=== PATIENT | female | born 2000 | race Caucasian/White ===

== ENCOUNTER 2018-04-08 11:37 | Emergency (ER) | payer OTHER ==
[~2018-04-08] VITALS: Ht 154.9 cm; Wt 55.5 kg
[2018-04-08] MEDS ORDERED: CYCLOBENZAPRINE HCL 10 MG TABLET PO ONE (12:30)
[2018-04-08] MEDS ORDERED: LIDOCAINE HCL 5% TRANSDERMAL PATCH TD ONE (12:30)
[2018-04-08] MEDS ORDERED: KETOROLAC TROMETHAMINE 60 MG/2 ML VIAL IM ONE (12:30)
[2018-04-08] MEDS ORDERED: HYDROCODONE/ACETAMINOPHEN 5-325 MG TABLET PO ONE (14:00)
[2018-04-08 14:54] VITALS: BP 111/58
== END 2018-04-08 15:10 | disposition home or self-care (01) ==
LOC: EMS 11:40
DX: M54.5 Low back pain (principal); G89.29 Other chronic pain
CPT/HCPCS: 96372; 99284; J1885